=== PATIENT | female | born 1985 | race Two or more races ===

== ENCOUNTER 2021-12-11 09:15 | Emergency (ER) | payer OTHER ==
[~2021-12-11] VITALS: Ht 162.6 cm; Wt 156.5 kg
--- NOTE | 2021-12-11 09:23 | NUR ---
TO ER BED 3, BIB RA FROM [facility], C/O NAUSEA AND VOMITING SINCE YESTERDAY AFTER SHE GOT HOME FROM [facility] WHERE SHE WAS ADMITTED FOR A GLF/SEIZURE, AAOX3, BREATHING EVEN AND NON LABORED, CONNECTED TO MONITOR, AWAITING MD HUI
[2021-12-11] MEDS ORDERED: ONDANSETRON HCL/PF 4 MG/2 ML VIAL IVP ONE (09:30)
[2021-12-11] MEDS ORDERED: IV NS 0.9% 1,000 ML BAG IV ONE (09:30)
[2021-12-11] MEDS ORDERED: ONDANSETRON HCL/PF 4 MG/2 ML VIAL ONE (09:32)
--- NOTE | 2021-12-11 09:58 | NUR ---
URINE COLLECTED AND SENT TO LAB
[2021-12-11 09:59] LABS: BASOPHILS % (AUTO) 0.5 % (0.0-2.0); EOSINOPHILS % (AUTO) 1.9 % (0.0-6.0); HEMATOCRIT 40 % (33-45); HEMOGLOBIN 13.2 g/dL (11.5-14.8); LYMPHOCYTES # (AUTO) 2.2 K/uL (0.8-4.8); LYMPHOCYTES % (AUTO) 29.8 % (20.0-44.0); MEAN CORPUSCULAR HGB CONC 33 g/dl (31.0-36.0); MEAN CORPUSCULAR VOLUME 81 fL (82-100); MONOCYTES # (AUTO) 0.5 K/uL (0.1-1.30); MONOCYTES % (AUTO) 7.1 % (2.0-12.0); NEUTROPHILS # (AUTO) 4.6 K/uL (1.8-8.9); NEUTROPHILS % (AUTO) 60.7 % (43.0-81.0); PLATELET COUNT (AUTO) 225 K/uL (150-450); RED BLOOD CELL COUNT(AUTO) 4.99 MIL/uL (4.0-5.2); WHITE BLOOD COUNT (AUTO) 7.5 K/uL (4.3-11.0)
[2021-12-11 10:42] LABS: BILIRUBIN,URINE NEGATIVE (NEGATIVE); COLOR,URINE YELLOW (YELLOW); LEUKOCYTE ESTERASE ,URINE NEGATIVE (NEGATIVE); NITRITE, URINE NEGATIVE (NEGATIVE); PROTEIN,URINE NEGATIVE (NEGATIVE); UGLUCOSE 250 MG/DL mg/dL (NEGATIVE); UROBILINOGEN,URINE 0.2 EU/dL (0.2)
[2021-12-11 10:56] LABS: BACTERIA,URINE Few /HPF (None Seen); HYALINE CASTS, URINE Few /LPF (None Seen); RBC,URINE 0-2 /HPF (0-2); SQUAMOUS EPITHELIAL CELL,UR Few /HPF (None Seen)
[2021-12-11 11:09] LABS: ALBUMIN 3.5 g/dL (3.4-5.0); TOTAL PROTEIN, SERUM 8.1 g/dL (6.4-8.2)
--- NOTE | 2021-12-11 11:47 | NUR ---
[facility] BLS TO [address] ETA 1242
[2021-12-11 11:58] LABS: BILIRUBIN,DIRECT 0.3 mg/dL (0.0-0.2); BILIRUBIN,TOTAL 0.9 mg/dL (0.2-1.0); POTASSIUM 3.8 mmol/L (3.5-5.1)
[2021-12-11] MEDS ORDERED: NITR100C6 PO ×2 (12:05→14:42)
[2021-12-11] MEDS ORDERED: ONDA4TAB5 PO ×2 (12:05→14:42)
[2021-12-11 12:06] LABS: CALCIUM, SERUM 9.3 mg/dL (8.5-10.1)
--- NOTE | 2021-12-11 13:05 | NUR ---
report given to ambulance staff
[2021-12-11 13:06] VITALS: BP 138/92
--- NOTE | 2021-12-11 13:06 | NUR ---
IV removed. Catheter intact and site benign. Pressure and 4x4 applied to site. No bleeding noted.Patient discharged to home in stable condition. Written and verbal after care instructions given. Patient verbalizes understanding of instruction.
== END 2021-12-11 13:07 | disposition home or self-care (01) ==
LOC: ER 09:29
DX: N39.0 Urinary tract infection, site not specified (principal); R11.2 Nausea with vomiting, unspecified; E11.65 Type 2 diabetes mellitus with hyperglycemia; R74.01 Elevation of levels of liver transaminase levels; I10 Essential (primary) hypertension; F32.A Depression, unspecified
CPT/HCPCS: 36415; 71045; 80048; 80076; 81001; 83690; 84703; 85025; 93005; 96361; 96374; 99285; J2405; J7030

== ENCOUNTER 2022-08-19 03:43 | Emergency (ER) | payer OTHER ==
[~2022-08-19] VITALS: Ht 162.6 cm; Wt 147.9 kg
[~2022-08-19 03:43] MED LIST: NITR100C6 PO; ONDA4TAB5 PO
--- NOTE | 2022-08-19 03:53 | NUR ---
[facility] AND [employer] FROM [facility]. UNABLE TO BE ACCEPTED DUE TO PT NOT ABLE TO WALK. HX BRAIN SURGERY; WALKS WITH ASSISTANCE. +SI -HI. -PLAN. [employer] AT PT'S BEDSIDE TO PLACE PT ON HOLD. DENIES MEDICAL COMPLAINTS. PT A/OX4. TOLERATING R/A WELL WITH NO RESP DISTRESS. PT IN GOWN, BELONGINGS COLLECTED AND PLACED IN LOCKER. WANDED BY SECURITY. SAFETY MEASURES IN PLACE. Addendum: 08/19/22 at 0420 by ELLE BIBRA AND [employer] FROM [facility]. UNABLE TO BE ACCEPTED DUE TO PT NOT ABLE TO WALK. BRAIN SURGERY; WALKS WITH ASSISTANCE. +SI -HI. +HEARING VOICES TELLING HER TO CHOKE HERSELF WITH ELECTRIC CORD. [employer] AT PT'S BEDSIDE TO PLACE PT ON HOLD. DENIES MEDICAL COMPLAINTS. PT A/OX4. TOLERATING R/A WELL WITH NO RESP DISTRESS. PT IN GOWN, BELONGINGS COLLECTED AND PLACED IN LOCKER. WANDED BY SECURITY. SAFETY MEASURES IN PLACE.
--- NOTE | 2022-08-19 04:02 | NUR ---
URINE COLLECTED AND SENT TO LAB
--- NOTE | 2022-08-19 04:03 | NUR ---
COVID ANTIGEN SWAB COLLECTED AND SENT TO LAB
[2022-08-19 04:49] LABS: BASOPHILS % (AUTO) 0.4 % (0.0-2.0); HEMATOCRIT 32 % (33-45); HEMOGLOBIN 10.1 g/dL (11.5-14.8); LYMPHOCYTES # (AUTO) 3.1 K/uL (0.8-4.8); LYMPHOCYTES % (AUTO) 36.4 % (20.0-44.0); MEAN CORPUSCULAR HGB CONC 32 g/dl (31.0-36.0); MEAN CORPUSCULAR VOLUME 77 fL (82-100); MONOCYTES # (AUTO) 0.6 K/uL (0.1-1.30); MONOCYTES % (AUTO) 6.5 % (2.0-12.0); NEUTROPHILS # (AUTO) 4.5 K/uL (1.8-8.9); NEUTROPHILS % (AUTO) 53.7 % (43.0-81.0); PLATELET COUNT (AUTO) 175 K/uL (150-450); RED BLOOD CELL COUNT(AUTO) 4.07 MIL/uL (4.0-5.2); WHITE BLOOD COUNT (AUTO) 8.5 K/uL (4.3-11.0)
[2022-08-19 04:58] LABS: BILIRUBIN,URINE NEGATIVE (NEGATIVE); COLOR,URINE YELLOW (YELLOW); LEUKOCYTE ESTERASE ,URINE TRACE (NEGATIVE); NITRITE, URINE NEGATIVE (NEGATIVE); PROTEIN,URINE NEGATIVE (NEGATIVE); UGLUCOSE NEGATIVE (NEGATIVE); UROBILINOGEN,URINE 0.2 EU/dL (0.2)
[2022-08-19 05:03] LABS: BACTERIA,URINE Rare /HPF (None Seen); SQUAMOUS EPITHELIAL CELL,UR Few /HPF (None Seen); WBC,URINE 0-2 /HPF (0-3)
[2022-08-19 05:09] LABS: CALCIUM, SERUM 8.9 mg/dL (8.5-10.1); CARBON DIOXIDE 27 mmol/L (21-32); CHLORIDE 106 mmol/L (98-107); CREATININE 0.8 mg/dL (0.6-1.3); GLUCOSE 193 mg/dL (74-106); POTASSIUM 3.6 mmol/L (3.5-5.1); SODIUM SERUM 139 mmol/L (136-145); UREA NITROGEN, BLOOD 14 mg/dL (7-18)
[2022-08-19 05:15] LABS: ALANINE AMINOTRANSFERASE 19 U/L (12-78); ALBUMIN 2.8 g/dL (3.4-5.0); ALKALINE PHOSPHATASE 83 U/L (46-116); ASPARTATE AMINOTRANSFERASE 11 U/L (15-37); BILIRUBIN,DIRECT 0.1 mg/dL (0.0-0.2); BILIRUBIN,TOTAL 0.2 mg/dL (0.2-1.0); TOTAL PROTEIN, SERUM 6.6 g/dL (6.4-8.2)
[2022-08-19 05:17] LABS: ALCOHOL, BLOOD < 3 mg/dL (0-0)
[2022-08-19] MEDS ORDERED: NITROFURANTOIN/MONOHYDRATE MACROCRYSTALS 100 MG CAPSULE PO ONE (05:30)
--- NOTE | 2022-08-19 05:30 | NUR ---
PT RESTING COMFORTABLY IN BED. VSS
--- NOTE | 2022-08-19 06:01 | NUR ---
called jessica shepard for psych eval.
[2022-08-19] MEDS ORDERED: NITROFURANTOIN/MONOHYDRATE MACROCRYSTALS 100 MG CAPSULE ONE (06:41)
--- NOTE | 2022-08-19 08:57 | NUR ---
faxed pt [phone] hold to clinical social work therapist Fiona
--- NOTE | 2022-08-19 10:46 | NUR ---
SW faxed clinials to the following [facility] for placement: [facility] TEL: [phone] Intake [facility] TEL: [phone] [facility] ; 4 FAX: [phone]
[2022-08-19] MEDS ORDERED: OLANZAPINE 5 MG TABLET PO ONE (12:00)
[2022-08-19] MEDS ORDERED: OLANZAPINE 5 MG TABLET ONE (12:00)
--- NOTE | 2022-08-19 13:02 | NUR ---
[facility] TEL: [phone] Airam britton who stated that they have clinicaly accepted the pt. and are pending bed availability. Per Airam they will reach out with acceptanceinformation once bed is available. SW will follow up as needed.
--- NOTE | 2022-08-19 15:46 | NUR ---
The pt. was accepted to [facility] TEL: [phone] [[address] [place] [id number]]unit 1 [facility] Room: 118/A under the care of Dr. Villa. Nurse to nurse report to be called in at 4:15 pm to [phone]. SW notified mental health technician to set up transport.
[2022-08-19 16:10] VITALS: BP 137/86
--- NOTE | 2022-08-19 16:46 | NUR ---
CALLED [facility] AND SET UP BLS TRANSPORT ETA 1739
[2022-08-19] MEDS ORDERED: DIVALPROEX SODIUM 250 MG TABLET.DR PO ONE (17:00)
[2022-08-19] MEDS ORDERED: TEMAZEPAM 15 MG CAPSULE ONE (17:10)
[2022-08-19] MEDS ORDERED: DIVALPROEX SODIUM 500 MG TABLET.DR PO ONE (17:10)
[2022-08-19] MEDS ORDERED: TRAZODONE 50 MG TABLET ONE (17:11)
--- NOTE | 2022-08-19 17:22 | NUR ---
REPORT GIVEN TO TRISTIN FOR CIERA
--- NOTE | 2022-08-19 17:30 | NUR ---
TRANSPORTATION ARRIVED, PT TRASNPORT IN STABLE CONDITION
[2022-08-19] MEDS ORDERED: TEMAZEPAM 7.5 MG CAPSULE PO PRN (21:00)
[2022-08-19] MEDS ORDERED: TRAZODONE 50 MG TABLET PO ONE (22:00)
--- NOTE | 2022-08-20 04:26 | NUR ---
UPDATED LIVIER INTAKE FROM [facility] [phone] ON PT'S STATUS ACCORDING TO DAY SHIFT RN NOTES PER LIVIER PT NEVER CAME TO [facility].
== END 2022-08-19 18:09 ==
LOC: ER 03:44
DX: R45.851 Suicidal ideations (principal); N39.0 Urinary tract infection, site not specified; I10 Essential (primary) hypertension; E11.9 Type 2 diabetes mellitus without complications; F32.A Depression, unspecified; Z79.899 Other long term (current) drug therapy; Z20.822 Contact with and (suspected) exposure to COVID-19; Z88.0 Allergy status to penicillin; Z88.2 Allergy status to sulfonamides; Z91.040 Latex allergy status
CPT/HCPCS: 99285; 85025; 80048; 80076; 84703; 81001; 36415; 80164; 87426; 80143; 80320; 80307; C9803; G0480